=== PATIENT | male | born 1980 | race Caucasian/White ===

== ENCOUNTER 2016-11-21 08:29 | Outpatient (RCR) | payer MEDICARE, OTHER, BC ==
[2016-11-21 08:39] LABS: MEAN CORPUSCULAR HEMOGLOBIN 27.5 PG (26.0-34.0); MEAN CORPUSCULAR HGB CONC 33.4 g/dL (31.0-37.0); MEAN PLATELET VOLUME 10.1 FL (6.0-9.5); WHITE BLOOD COUNT 10.21 10^3uL (4.0-11.0)
[2016-11-21 08:41] LABS: BILIRUBIN,URINE Negative (Negative); CLARITY,URINE Clear; COLOR,URINE Yellow; GLUCOSE, URINE (UA) Negative (Negative); LEUKOCYTE ESTERASE ,URINE Negative (Negative); UROBILINOGEN,URINE 0.2 mg/dL (0.2-1.0)
[2016-11-21 08:43] LABS: URINE CENTRIFUGED VOLUME 12 mL
[2016-11-21 08:50] LABS: RBC,URINE 0-2 /HPF
[2016-11-21 09:23] LABS: ALBUMIN 4.2 g/dL (3.4-5.0); ANION GAP 16.1 MEQ/L (3-15); MAGNESIUM* 1.6 mg/dL (1.6-2.3)
[2016-11-22 13:40] LABS: FK506 7.9 ng/mL
[2017-01-01 08:52] LABS: MEAN CORPUSCULAR HEMOGLOBIN 29.1 PG (26.0-34.0); MEAN CORPUSCULAR HGB CONC 34.2 g/dL (31.0-37.0); MEAN PLATELET VOLUME 10.2 FL (6.0-9.5); WHITE BLOOD COUNT 10.2 10^3uL (4.0-11.0)
[2017-01-01 08:55] LABS: BILIRUBIN,URINE Negative (Negative); CLARITY,URINE Clear; COLOR,URINE Yellow; GLUCOSE, URINE (UA) Negative (Negative); LEUKOCYTE ESTERASE ,URINE Negative (Negative); PH,URINE 5.5 (5.0 - 8.0); UROBILINOGEN,URINE 0.2 mg/dL (0.2-1.0)
[2017-01-01 09:13] LABS: ALBUMIN 4.4 g/dL (3.4-5.0); ANION GAP 17.4 MEQ/L (3-15); MAGNESIUM* 1.8 mg/dL (1.6-2.3); TOTAL PROTEIN 7.3 g/dL (6.4-8.5)
[2017-01-01 09:32] LABS: RBC,URINE None Seen /HPF; URINE CENTRIFUGED VOLUME 12 mL
[2017-01-02 13:57] LABS: FK506 6.9 ng/mL
[2017-01-27 09:42] LABS: MEAN CORPUSCULAR HEMOGLOBIN 28.3 PG (26.0-34.0); MEAN CORPUSCULAR HGB CONC 32.1 g/dL (31.0-37.0); MEAN PLATELET VOLUME 9.3 FL (6.0-9.5); WHITE BLOOD COUNT 7.51 10^3uL (4.0-11.0)
[2017-01-27 09:50] LABS: BILIRUBIN,URINE Negative (Negative); CLARITY,URINE Clear; COLOR,URINE Yellow; GLUCOSE, URINE (UA) Negative (Negative); LEUKOCYTE ESTERASE ,URINE Negative (Negative); PH,URINE 6.5 (5.0 - 8.0)
[2017-01-27 10:02] LABS: URINE CENTRIFUGED VOLUME 12 mL
[2017-01-27 10:03] LABS: RBC,URINE 0-2 /HPF
[2017-01-27 10:16] LABS: ANION GAP 14.4 MEQ/L (3-15); CALCULATED IONIZED CALCIUM 4.1 mg/dL (3.8-4.6); MAGNESIUM* 1.7 mg/dL (1.6-2.3); TOTAL PROTEIN 6.8 g/dL (6.4-8.5)
[2017-01-28 14:22] LABS: FK506 7.7 ng/mL
== END 2017-02-19 | disposition home or self-care (01) ==
LOC: LAB 08:29
PROVIDERS: ATTEND Physician Assistant Medical
DX: Z94.0 Kidney transplant status (principal); Z79.899 Other long term (current) drug therapy; T86.10 Unspecified complication of kidney transplant
CPT/HCPCS: 36415; 80053; 80197; 81003; 81015; 82465; 82977; 83615; 83735; 84100; 84478; 84550; 85027; 87799

== ENCOUNTER → 2016-11-21 | Outpatient (CLI) | payer MEDICARE, OTHER, BC ==
[~2016-11-21] MED LIST: AC500T PO; ALLO100T PO; ATEN100T13 PO; CALC0.5C3 PO; CALC250T2 PO; CALC500T35 PO; CALC667C3 PO; CITA10SO PO; CITA40TA5 PO; CLN.1T PO; CLON0.1T PO; FAMO-107 PO; FRSM40T PO; HYDR-3702 PO; HYDR-3811 PO; LOVA10TA PO; MAG1CAPS4 PO; MIDO5TAB PO; MYCO250C4 PO; NYST1000 PO; POTA500T PO; PRED5TAB PO; SENN8.6T10 PO; [UNRECOGNIZED DRUG - CODE] PO
== END ==
LOC: LAB 08:49
PROVIDERS: ATTEND Family Medicine
DX: E66.01 Morbid (severe) obesity due to excess calories (principal); Z79.899 Other long term (current) drug therapy
CPT/HCPCS: 83036

== ENCOUNTER → 2017-02-26 | Outpatient (CLI) | payer MEDICARE, OTHER ==
[2017-02-26 10:11] LABS: MEAN CORPUSCULAR HEMOGLOBIN 27.7 PG (26.0-34.0); MEAN CORPUSCULAR HGB CONC 33.2 g/dL (31.0-37.0); MEAN PLATELET VOLUME 10.3 FL (6.0-9.5); WHITE BLOOD COUNT 10.06 10^3uL (4.0-11.0)
[2017-02-26 10:34] LABS: ANION GAP 14.1 MEQ/L (3-15); CALCULATED IONIZED CALCIUM 4.1 mg/dL (3.8-4.6); MAGNESIUM* 1.8 mg/dL (1.6-2.3); TOTAL PROTEIN 6.7 g/dL (6.4-8.5)
--- NOTE | 2017-02-26 10:43 | Diagnostic Imaging Report ---
INDICATION: History of hypertension. COMPARISON: 02/06/2016 FINDINGS: Frontal and lateral views of the chest demonstrate normal heart size and pulmonary vascularity. The lungs are clear. There are no signs of infiltrate, pleural effusions or pneumothoraces. The visualized osseous structures show no acute abnormalities. IMPRESSION: 1. No acute process. No signs of infiltrates, effusions or pneumothoraces. Dictated by: Dictated on workstation # [id number]
[2017-02-26 10:48] LABS: BILIRUBIN,URINE Negative (Negative); CLARITY,URINE Clear; COLOR,URINE Yellow; GLUCOSE, URINE (UA) Negative (Negative); LEUKOCYTE ESTERASE ,URINE Negative (Negative); UROBILINOGEN,URINE 0.2 mg/dL (0.2-1.0)
[2017-02-26 10:57] LABS: URINE CENTRIFUGED VOLUME 12 mL
--- NOTE | 2017-02-26 11:17 | Diagnostic Imaging Report ---
PROCEDURE: US abdomen complete. TECHNIQUE: Multiple real-time grayscale images were obtained over the abdomen in various projections. INDICATION: Cirrhotic patient, preoperative evaluation for bariatric surgery. FINDINGS: The body habitus limits exam sensitivity. The liver appears unremarkable. The gallbladder is surgically absent. The pancreatic visualization is limited by gas and body habitus. No peripancreatic fluid collection. The spleen is nonfocal and at the upper limits in size at 16 cm. Portal venous flow is in the normal hepatopetal direction. The abdominal aorta is nonaneurysmal. The left kidney is small, cortically thinned, echodense, and unobstructed measuring 7.7 cm. The right kidney is reportedly a transplant measuring 12 cm showing normal volume, morphology, and echotexture. No hydronephrosis. No fluid collection. There is no ascites. IMPRESSION: The right renal transplant is unobstructed and appears normal. The left kidney is chronically atrophic. No ascites or fluid collection. No biliary dilatation. Mildly prominent but nonfocal spleen. Dictated by: Dictated on workstation # [id number]
--- NOTE | 2017-02-26 11:41 | Diagnostic Imaging Report ---
INDICATION: Preoperative evaluation for weight loss surgery COMPARISON: None. TOTAL FLUORO TIME: 2.5 minutes FINDINGS: The abdominal manager etl image demonstrates a nonobstructive bowel gas pattern. Residual stool is seen within the colon. The visualized adjacent bony structures are unremarkable. Upper GI: A double-contrast upper GI study was performed. The patient demonstrated normal swallow function. Tertiary contractions are noted. Otherwise, esophageal motility and mucosal pattern are intact without evidence of esophageal mass or focal lesion. No hiatal hernia is seen. Minimal gastroesophageal reflux was witnessed during the examination. The stomach, duodenal bulb, and c-loop have a normal appearance. IMPRESSION: 1. Tertiary contractions and minimal gastroesophageal reflux. Otherwise, unremarkable upper GI exam. Dictated by: Dictated on workstation # [id number]
[2017-02-26 18:58] LABS: IRON 62 ug/dL (65-175)
[2017-02-26 19:30] LABS: VITAMIN B 12 397 pg/mL (213-816)
[2017-02-27 13:31] LABS: FK506 5.1 ng/mL
[2017-02-28 16:14] LABS: H.PYLORI C UREA BREATH Negative (Negative)
== END ==
LOC: RAD 08:53
PROVIDERS: ATTEND Surgery
DX: G47.33 Obstructive sleep apnea (adult) (pediatric) (principal); I10 Essential (primary) hypertension; K74.60 Unspecified cirrhosis of liver; E66.01 Morbid (severe) obesity due to excess calories; Z94.0 Kidney transplant status; D89.9 Disorder involving the immune mechanism, unspecified; Z79.899 Other long term (current) drug therapy; T86.10 Unspecified complication of kidney transplant
CPT/HCPCS: 36415; 71020; 74241; 76700; 80053; 80061; 80197; 81003; 81015; 82306; 82607; 82652; 82746; 82977; 83013; 83036; 83540; 83615; 83735; 84100; 84425; 84443; 84550; 84630; 85027; 87799; 93005

== ENCOUNTER 2017-03-27 07:45 | Outpatient (RCR) | payer MEDICARE, OTHER ==
[2017-03-27 08:01] LABS: BILIRUBIN,URINE Negative (Negative); CLARITY,URINE Clear; COLOR,URINE Yellow; GLUCOSE, URINE (UA) Negative (Negative); LEUKOCYTE ESTERASE ,URINE Negative (Negative); UROBILINOGEN,URINE 0.2 mg/dL (0.2-1.0)
[2017-03-27 08:03] LABS: MEAN CORPUSCULAR HEMOGLOBIN 28.3 PG (26.0-34.0); MEAN CORPUSCULAR HGB CONC 33.5 g/dL (31.0-37.0); MEAN PLATELET VOLUME 10.3 FL (6.0-9.5); WHITE BLOOD COUNT 8.37 10^3uL (4.0-11.0)
[2017-03-27 08:32] LABS: ALBUMIN 4.1 g/dL (3.4-5.0); ANION GAP 14.1 MEQ/L (3-15); CALCULATED IONIZED CALCIUM 3.8 mg/dL (3.8-4.6); MAGNESIUM* 1.5 mg/dL (1.6-2.3); TOTAL PROTEIN 7.1 g/dL (6.4-8.5)
[2017-03-28 12:43] LABS: FK506 12.9 ng/mL
== END 2017-04-09 19:22 | disposition home or self-care (01) ==
LOC: LAB 07:45
PROVIDERS: ATTEND Physician Assistant Medical
DX: Z94.0 Kidney transplant status (principal); D89.9 Disorder involving the immune mechanism, unspecified; Z79.899 Other long term (current) drug therapy; T86.10 Unspecified complication of kidney transplant
CPT/HCPCS: 36415; 80053; 80197; 81003; 82465; 82977; 83615; 83735; 84100; 84478; 84550; 85027; 87799